=== PATIENT | male | born 1945 | race Caucasian/White ===

== ENCOUNTER 2016-09-17 11:29 | Inpatient (IN) | payer MEDICARE, SELFPAY ==
[~2016-09-17] VITALS: Ht 177.8 cm; Wt 116.6 kg
[2016-09-17 13:39] LABS: HEMOGLOBIN 14.6 gm/dl (14.0-17.5); RED BLOOD COUNT 4.7 M/UL (4.20-5.50); WHITE BLOOD COUNT 10.9 K/UL (4.5-11.0)
[2016-09-17 14:05] LABS: BUN/CREATININE RATIO 23 (0-10)
[2016-09-17] MEDS ORDERED: DILTIAZEM 24HR240 MG PO (22:17)
[2016-09-17] MEDS ORDERED: COREG 12.5MG12.5 MG PO (22:17)
[2016-09-17] MEDS ORDERED: LIPITOR TAB 1010 MG PO (22:18)
[2016-09-17] MEDS ORDERED: XARELTO20 MG PO (22:18)
[2016-09-17] MEDS ORDERED: ZANTAC 150 MG150 MG PO (22:19)
[2016-09-17] MEDS ORDERED: SYNTHROID 50 M50 MCG PO (22:20)
[2016-09-17] MEDS ORDERED: ZYLOPRIM 100 M100 MG PO (22:20)
[2016-09-17] MEDS ORDERED: HYDROCODON-ACE1 EAC6 PO (22:21)
[2016-09-17] MEDS ORDERED: KLONOPIN TAB 00.5 MG PO (22:22)
[2016-09-17] MEDS ORDERED: GLUCOTROL 10 MG10 MG PO (22:22)
[2016-09-17] MEDS ORDERED: KLOR-CON 1010 MEQ PO (22:23)
[2016-09-17] MEDS ORDERED: LASIX80 MG PO (22:23)
[2016-09-17] MEDS ORDERED: LYRICA200 MG PO (22:24)
[2016-09-17] MEDS ORDERED: METOLAZONE5 MG PO (22:24)
[2016-09-17] MEDS ORDERED: SOMA350 MG PO (22:25)
[2016-09-17] MEDS ORDERED: PROZAC20 MG PO (22:25)
[2016-09-17] MEDS ORDERED: BYETTA 1010 MCG/2.4 SQ (22:28)
[2016-09-17] MEDS ORDERED: LANTUS100 UNIT/1 SQ (22:29)
[2016-09-17] MEDS ORDERED: ASPIR 8181 MG PO (22:30)
[2016-09-17] MEDS ORDERED: IPRATROPIU0.2 MG/1 M INH (22:31)
[2016-09-17] MEDS ORDERED: COLACE100 MG PO (22:32)
[2016-09-17] MEDS ORDERED: TYLENOL 650 MG650 MG PO (22:33)
[2016-09-17] MEDS ORDERED: VENTOLIN/PROVE0.5 ML INH (22:34)
[2016-09-18 07:14] LABS: RED BLOOD COUNT 4.8 M/UL (4.20-5.50); WHITE BLOOD COUNT 10.9 K/UL (4.5-11.0)
[2016-09-18 07:28] LABS: BUN/CREATININE RATIO 26 (0-10)
[2016-09-18] MEDS ORDERED: TYLENOL 325MG325 MG PO (09:31)
[2016-09-19 07:59] LABS: HEMOGLOBIN 14.7 gm/dl (14.0-17.5); RED BLOOD COUNT 4.83 M/UL (4.20-5.50); WHITE BLOOD COUNT 10.7 K/UL (4.5-11.0)
[2016-09-19 08:15] LABS: BUN/CREATININE RATIO 27 (0-10)
[2016-09-21 06:48] LABS: HEMOGLOBIN 13.3 gm/dl (14.0-17.5); RED BLOOD COUNT 4.36 M/UL (4.20-5.50); WHITE BLOOD COUNT 8.4 K/UL (4.5-11.0)
[2016-09-21 07:14] LABS: BUN/CREATININE RATIO 31 (0-10)
[2016-09-22 03:55] LABS: HEMOGLOBIN 13.9 gm/dl (14.0-17.5); RED BLOOD COUNT 4.43 M/UL (4.20-5.50); WHITE BLOOD COUNT 9.6 K/UL (4.5-11.0)
[2016-09-23 04:07] LABS: HEMOGLOBIN 13.8 gm/dl (14.0-17.5); RED BLOOD COUNT 4.44 M/UL (4.20-5.50)
[2016-09-23 04:39] LABS: BUN/CREATININE RATIO 28 (0-10)
[2016-09-23] MEDS ORDERED: LEVAQUIN750 MG PO (16:58)
[2016-09-23] MEDS ORDERED: OXYGEN (17:09)
== END 2016-09-23 16:55 | disposition home or self-care (01) | DRG 189 ==
LOC: ER1 11:29 → PROG CARE 18:12 → ZEROF 18:12 → PROG CARE 22:15
PROVIDERS: Internal Medicine; Physician Assistant; ADMIT Internal Medicine
PROC: 5A09457 Assistance with Respiratory Ventilation, 24-96 Consecutive Hours, Continuous Positive Airway Pressure (ICD-10-PCS; principal; 2016-09-18)
DX: J96.21 Acute and chronic respiratory failure with hypoxia (principal); J18.9 Pneumonia, unspecified organism; I50.33 Acute on chronic diastolic (congestive) heart failure; G93.40 Encephalopathy, unspecified; J44.0 Chronic obstructive pulmonary disease with (acute) lower respiratory infection; I31.3 Pericardial effusion (noninflammatory); E66.2 Morbid (severe) obesity with alveolar hypoventilation; F17.210 Nicotine dependence, cigarettes, uncomplicated; Z99.81 Dependence on supplemental oxygen; F03.90 Unspecified dementia, unspecified severity, without behavioral disturbance, psychotic disturbance, mood disturbance, and anxiety; I11.0 Hypertensive heart disease with heart failure; I48.2 Chronic atrial fibrillation; Z79.01 Long term (current) use of anticoagulants; Z79.4 Long term (current) use of insulin; J96.22 Acute and chronic respiratory failure with hypercapnia; Z68.36 Body mass index [BMI] 36.0-36.9, adult; R13.10 Dysphagia, unspecified; I71.2 Thoracic aortic aneurysm, without rupture; E11.42 Type 2 diabetes mellitus with diabetic polyneuropathy; E87.6 Hypokalemia; E78.5 Hyperlipidemia, unspecified; Z66 Do not resuscitate
CPT/HCPCS: ECHO; 36415; 36600; 70450; 71010; 71020; 80048; 80053; 81001; 82550; 82553; 82803; 82962; 83605; 83690; 83735; 83874; 83880; 84132; 84443; 84484; 85025; 85027; 86140; 87040; 87086; 92610; 93005; 93306; 94640; 94660; 94664; 96374; 96375; 97110; 97116; 97530; 99285; J1940; J1956; J2060; J2270

== ENCOUNTER → 2016-09-30 | Outpatient (CLI) | payer MEDICARE ==
[~2016-09-30] MED LIST: ASPIR 8181 MG PO; BYETTA 1010 MCG/2.4 SQ; COLACE100 MG PO; COREG 12.5MG12.5 MG PO; DILTIAZEM 24HR240 MG PO; GLUCOTROL 10 MG10 MG PO; HYDROCODON-ACE1 EAC6 PO; IPRATROPIU0.2 MG/1 M INH; KLONOPIN TAB 00.5 MG PO; KLOR-CON 1010 MEQ PO; LANTUS100 UNIT/1 SQ; LASIX80 MG PO; LEVAQUIN750 MG PO; LIPITOR TAB 1010 MG PO; LYRICA200 MG PO; METOLAZONE5 MG PO; OXYGEN; PROZAC20 MG PO; SOMA350 MG PO; SYNTHROID 50 M50 MCG PO; TYLENOL 325MG325 MG PO; TYLENOL 650 MG650 MG PO; VENTOLIN/PROVE0.5 ML INH; XARELTO20 MG PO; ZANTAC 150 MG150 MG PO; ZYLOPRIM 100 M100 MG PO
== END ==
LOC: RAD 11:00
DX: J15.9 Unspecified bacterial pneumonia (principal); J84.9 Interstitial pulmonary disease, unspecified
CPT/HCPCS: 71020

== ENCOUNTER → 2016-10-13 | Outpatient (CLI) | payer MEDICARE, OTHER | LOC: RAD 09:00 | DX: R13.14 Dysphagia, pharyngoesophageal phase (principal); K44.9 Diaphragmatic hernia without obstruction or gangrene; K21.9 Gastro-esophageal reflux disease without esophagitis; K22.4 Dyskinesia of esophagus | CPT/HCPCS: 74220 ==

== ENCOUNTER 2016-10-25 08:41 | Emergency (ER) | payer MEDICARE, OTHER ==
[2016-10-25 09:47] LABS: RED BLOOD COUNT 4.61 M/UL (4.20-5.50)
[2016-10-25 10:09] LABS: BUN/CREATININE RATIO 24 (0-10)
== END 2016-10-25 10:50 | disposition home or self-care (01) ==
LOC: ER1 08:41
PROVIDERS: Emergency Medicine
DX: R04.0 Epistaxis (principal); I10 Essential (primary) hypertension; E11.9 Type 2 diabetes mellitus without complications; J44.9 Chronic obstructive pulmonary disease, unspecified; I48.91 Unspecified atrial fibrillation; F03.90 Unspecified dementia, unspecified severity, without behavioral disturbance, psychotic disturbance, mood disturbance, and anxiety; Z79.01 Long term (current) use of anticoagulants; F17.200 Nicotine dependence, unspecified, uncomplicated; Z79.4 Long term (current) use of insulin; Z79.84 Long term (current) use of oral hypoglycemic drugs; Z79.899 Other long term (current) drug therapy
CPT/HCPCS: 36415; 71010; 80053; 85025; 85610; 85730; 94664; 99284